=== PATIENT | male | born 1985 | race Caucasian/White ===

== ENCOUNTER 2019-09-28 13:04 | Emergency (ER) | payer MEDICAID, OTHER ==
[~2019-09-28] VITALS: Ht 188 cm; Wt 91.0 kg
[2019-09-28 13:06] VITALS: BP 146/91
[2019-09-28] MEDS ORDERED: SULF1TAB49 PO (13:46)
[2019-09-28] MEDS ORDERED: ibuprofen tablet 400 MG TABLET PO STA (13:59)
[2019-09-28] MEDS ORDERED: ibuprofen 200mg tablet PO STA (14:00)
== END 2019-09-28 14:08 | disposition home or self-care (01) ==
LOC: ER 13:04
DX: L02.511 Cutaneous abscess of right hand (principal)
CPT/HCPCS: 26010; 99283

== ENCOUNTER 2021-11-01 10:55 | Inpatient (IN) | payer MEDICAID, OTHER ==
[~2021-11-01] VITALS: Ht 188 cm; Wt 100.0 kg
[2021-11-01 11:29] LABS: BASOPHILS # (AUTO) 0.1 X10'3 (0-0.2); BASOPHILS % (AUTO) 0.8 % (0-1); EOSINOPHILS # (AUTO) 0.4 X10'3 (0-0.9); EOSINOPHILS % (AUTO) 4.2 % (0-6); HEMATOCRIT 40.1 % (42.0-52.0); HEMOGLOBIN 13.6 g/dl (14.0-17.9); LYMPHOCYTES # (AUTO) 2.1 X10'3 (1.1-4.8); LYMPHOCYTES % (AUTO) 21.1 % (21-51); MEAN CORPUSCULAR HEMOGLOBIN 30.8 PG (27.0-31.0); MEAN CORPUSCULAR VOLUME 90.7 FL (78-98); MEAN PLATELET VOLUME 8.5 FL (7.4-10.4); MONOCYTES # (AUTO) 0.7 X10'3 (0-0.9); MONOCYTES % (AUTO) 6.8 % (2-12); NEUTROPHILS # (AUTO) 6.8 X10'3 (1.8-7.7); NEUTROPHILS % (AUTO) 67.1 % (42-75); PLATELET COUNT 285 X10'3 (140-440); RED BLOOD COUNT 4.42 X10'6 (4.70-6.10); RED CELL DISTRIBUTION WIDTH 13.2 % (11.5-14.5); WHITE BLOOD COUNT 10.1 X10'3 (4.5-11.0)
[2021-11-01 11:45] LABS: ALANINE AMINOTRANSFERASE 36 U/L (12-78); ALBUMIN 4.2 G/DL (3.4-5.0); ALBUMIN/GLOBULIN RATIO 1.2 (1.1-1.5); ALKALINE PHOSPHATASE 51 IU/L (46-116); ANION GAP 10 (8-16); ASPARTATE AMINO TRANSFERASE 23 U/L (10-37); BILIRUBIN,TOTAL 0.3 MG/DL (0.1-1.0); BLOOD UREA NITROGEN 14 MG/DL (7-18); CALCIUM 8.4 MG/DL (8.5-10.1); CHLORIDE 104 MMOL/L (99-107); GLUCOSE 109 MG/DL (70-104); POTASSIUM 3.8 MMOL/L (3.5-5.1); SODIUM 137 MMOL/L (135-145); TOTAL CARBON DIOXIDE 23.1 MMOL/L (24-32); TOTAL PROTEIN 7.8 G/DL (6.4-8.2); eGFR 84 ML/MIN
[2021-11-01 12:05] LABS: D-DIMER < 0.19 MG/L FEU (0-0.50)
[2021-11-01] MEDS ORDERED: ALBU0.63 NEB (13:36)
[2021-11-01] MEDS ORDERED: ALBU8.5H17 INH (13:52)
[2021-11-01 14:11] LABS: URINE AMPHETAMINE SCREEN NEGATIVE (Neg); URINE BARBITUATE SCREEN NEGATIVE (Neg); URINE BENZODIAZEPINES SCREEN NEGATIVE (Neg); URINE CANNABINOID SCREEN POSITIVE (Neg); URINE COCAINE SCREEN NEGATIVE (Neg); URINE METHADONE SCREEN NEGATIVE (Neg); URINE OPIATE SCREEN NEGATIVE (Neg); URINE PHENCYCLIDINE SCREEN NEGATIVE (Neg)
[2021-11-01] MEDS ORDERED: acetaminophen 650mg rectal suppository RC PRN (15:30)
[2021-11-01] MEDS ORDERED: magnesium 2GM in 50ml NS 50 ML IV PRN (15:30)
[2021-11-01] MEDS ORDERED: potassium Cl 20 mEq SR tablet PO PRN ×2 (15:30)
[2021-11-01] MEDS ORDERED: potassium CL 10mEq/100ml bag 100 ML IV PRN (15:30)
[2021-11-01] MEDS ORDERED: diphenhydrAMINE 25mg capsule PO PRN (15:30)
[2021-11-01] MEDS ORDERED: magnesium Cl slow-release 64mg tablet PO PRN (15:30)
[2021-11-01] MEDS ORDERED: mag hydrox/Alum hydrox/simeth 30ml oral suspension PO PRN (15:30)
[2021-11-01] MEDS ORDERED: magnesium 4gm in 100ml NS 100 ML IV PRN (15:30)
[2021-11-01] MEDS ORDERED: bisacodyl 10mg suppository rectal RC PRN (15:30)
[2021-11-01] MEDS ORDERED: ondansetron/PF 4mg/2ml inj IV PRN (15:30)
[2021-11-01] MEDS ORDERED: acetaminophen 325mg tablet PO PRN ×2 (15:30)
[2021-11-01] MEDS ORDERED: PERFLUTREN PROTEIN-A MICROSPHR (Optison) 0.22 MG/ML 3ML VIAL IV PRN (15:30)
[2021-11-01] MEDS ORDERED: magnesium hydroxide 30ml (MOM) UD suspension PO PRN (15:30)
[2021-11-01] MEDS: normal saline 1000ml 1,000 ML IV SCH (16:03)
[2021-11-01] MEDS ORDERED: albuterol 2.5 MG/3 ML nebule NEB PRN (16:05)
--- NOTE | 2021-11-01 16:22 | NUR ---
Assisted with bubble study.
[2021-11-01 17:32] LABS: HEMOGLOBIN A1C 5.5 % (4.5-6.2)
[2021-11-01 17:45] VITALS: BP 122/72
--- NOTE | 2021-11-01 18:00 | NUR ---
Orientee documentation: I have reviewed and agree with all interventions, assessments performed and documented by Malou RN.
--- NOTE | 2021-11-01 18:00 | NUR ---
Problems reprioritized. Patient report given, questions answered & plan of care reviewed with Will JACKSON.
--- NOTE | 2021-11-01 19:01 | NUR ---
Patient in room PCU 3015. I have received report from Jasmina JACKSON and had the opportunity to ask questions and assume patient care.
[2021-11-01 20:00] VITALS: BP 138/81
[2021-11-01] MEDS: docusate sod 100mg capsule PO SCH (20:00)
[2021-11-01] MEDS: K and/or MAG REPLACEMENT MC SCH (20:00)
[2021-11-01 20:03] VITALS: BP 142/79
[2021-11-01 20:08] VITALS: BP 134/85
[2021-11-01] MEDS: heparin, porcine 5000 units/ml vial SQ SCH (20:24)
[2021-11-01 22:00] VITALS: BP 134/72
[2021-11-01 22:24] LABS: CLARITY,URINE CLEAR (Clear); COLOR,URINE YELLOW (Yellow); GLUCOSE, URINE NEGATIVE (Neg); KETONES,URINE TRACE mg/dl (Neg); LEUKOCYTE ESTERASE ,URINE NEGATIVE (Neg); NITRITES, URINE NEGATIVE (Neg); OCCULT BLOOD,URINE NEGATIVE (Neg); PROTEIN,URINE NEGATIVE (Neg); UROBILINOGEN,URINE 0.2 E.U/dL (0.2-1.0)
[2021-11-01 22:38] LABS: UA COLLECTION TYPE NON-SPECIFIED
[2021-11-02] VITALS (8 sets, daily range): BP systolic 113–141; BP diastolic 57–101
[2021-11-02] MEDS: normal saline 1000ml 1,000 ML IV SCH (02:33)
[2021-11-02 07:14] LABS: BASOPHILS % (AUTO) 0.7 % (0-1); EOSINOPHILS # (AUTO) 0.3 X10'3 (0-0.9); EOSINOPHILS % (AUTO) 4.6 % (0-6); HEMATOCRIT 37.7 % (42.0-52.0); HEMOGLOBIN 12.9 g/dl (14.0-17.9); LYMPHOCYTES # (AUTO) 1.1 X10'3 (1.1-4.8); LYMPHOCYTES % (AUTO) 17.4 % (21-51); MEAN CORPUSCULAR HEMOGLOBIN 30.8 PG (27.0-31.0); MEAN CORPUSCULAR HGB CONC 34.2 g/dL (33.0-36.5); MEAN PLATELET VOLUME 8.8 FL (7.4-10.4); MONOCYTES # (AUTO) 0.5 X10'3 (0-0.9); MONOCYTES % (AUTO) 7.4 % (2-12); NEUTROPHILS # (AUTO) 4.6 X10'3 (1.8-7.7); NEUTROPHILS % (AUTO) 69.9 % (42-75); PLATELET COUNT 212 X10'3 (140-440); RED BLOOD COUNT 4.19 X10'6 (4.70-6.10); RED CELL DISTRIBUTION WIDTH 13.1 % (11.5-14.5); WHITE BLOOD COUNT 6.6 X10'3 (4.5-11.0)
[2021-11-02 07:29] LABS: ALANINE AMINOTRANSFERASE 30 U/L (12-78); ALBUMIN 3.2 G/DL (3.4-5.0); ALKALINE PHOSPHATASE 42 IU/L (46-116); ANION GAP 8 (8-16); ASPARTATE AMINO TRANSFERASE 14 U/L (10-37); BILIRUBIN,TOTAL 0.4 MG/DL (0.1-1.0); BLOOD UREA NITROGEN 13 MG/DL (7-18); CHLORIDE 108 MMOL/L (99-107); CHOL/HDL RATIO 3.7 (0.00-4.99); CHOLESTEROL 154 MG/DL (0-200); CREATININE 0.81 MG/DL (0.60-1.10); GLUCOSE 90 MG/DL (70-104); HDL CHOLESTEROL 42 MG/DL (35-60); LDL CHOLESTEROL 90 MG/DL (50-100); MAGNESIUM 1.8 MG/DL (1.5-2.4); PHOSPHORUS 2.3 MG/DL (2.3-4.5); SODIUM 140 MMOL/L (135-145); TOTAL CARBON DIOXIDE 23.8 MMOL/L (24-32); TOTAL PROTEIN 6.5 G/DL (6.4-8.2); TRIGLYCERIDES 116 MG/DL (20-135); eGFR > 90 ML/MIN
[2021-11-02] MEDS: pantoprazole 40mg Tablet.DR PO SCH ×2 (07:30→09:35)
[2021-11-02] MEDS: docusate sod 100mg capsule PO SCH ×2 (08:00→19:34)
[2021-11-02] MEDS: K and/or MAG REPLACEMENT MC SCH ×2 (08:00→20:00)
[2021-11-02] MEDS: heparin, porcine 5000 units/ml vial SQ SCH ×2 (09:35→19:35)
[2021-11-02] MEDS ORDERED: pneumococcal 23-VAL P-sac vacc 25 mcg/0.5ml vial IMVAC ONE (10:00)
[2021-11-03 02:00] VITALS: BP 129/74
[2021-11-03 07:03] LABS: BASOPHILS # (AUTO) 0.1 X10'3 (0-0.2); BASOPHILS % (AUTO) 0.7 % (0-1); EOSINOPHILS # (AUTO) 0.3 X10'3 (0-0.9); HEMATOCRIT 39.7 % (42.0-52.0); HEMOGLOBIN 13.8 g/dl (14.0-17.9); LYMPHOCYTES # (AUTO) 1.1 X10'3 (1.1-4.8); LYMPHOCYTES % (AUTO) 14.4 % (21-51); MEAN CORPUSCULAR HEMOGLOBIN 31.2 PG (27.0-31.0); MEAN CORPUSCULAR HGB CONC 34.9 g/dL (33.0-36.5); MEAN CORPUSCULAR VOLUME 89.5 FL (78-98); MEAN PLATELET VOLUME 8.6 FL (7.4-10.4); MONOCYTES # (AUTO) 0.5 X10'3 (0-0.9); MONOCYTES % (AUTO) 6.9 % (2-12); NEUTROPHILS # (AUTO) 5.6 X10'3 (1.8-7.7); PLATELET COUNT 231 X10'3 (140-440); RED BLOOD COUNT 4.43 X10'6 (4.70-6.10); RED CELL DISTRIBUTION WIDTH 12.9 % (11.5-14.5); WHITE BLOOD COUNT 7.6 X10'3 (4.5-11.0)
[2021-11-03 07:09] LABS: OCCULT BLOOD STOOL NEGATIVE (Neg)
[2021-11-03 07:18] LABS: ALANINE AMINOTRANSFERASE 26 U/L (12-78); ALBUMIN 3.6 G/DL (3.4-5.0); ALKALINE PHOSPHATASE 47 IU/L (46-116); ANION GAP 9 (8-16); ASPARTATE AMINO TRANSFERASE 13 U/L (10-37); BILIRUBIN,TOTAL 0.4 MG/DL (0.1-1.0); BLOOD UREA NITROGEN 13 MG/DL (7-18); BUN/CREATININE RATIO 15.7 (5.4-32.0); CALCIUM 8.4 MG/DL (8.5-10.1); CHLORIDE 106 MMOL/L (99-107); CREATININE 0.83 MG/DL (0.60-1.10); GLUCOSE 101 MG/DL (70-104); MAGNESIUM 2.1 MG/DL (1.5-2.4); PHOSPHORUS 2.5 MG/DL (2.3-4.5); SODIUM 139 MMOL/L (135-145); TOTAL CARBON DIOXIDE 24.5 MMOL/L (24-32); TOTAL PROTEIN 7.3 G/DL (6.4-8.2); eGFR > 90 ML/MIN
[2021-11-03] MEDS: pantoprazole 40mg Tablet.DR PO SCH (07:30)
[2021-11-03] MEDS: docusate sod 100mg capsule PO SCH (08:00)
[2021-11-03] MEDS: K and/or MAG REPLACEMENT MC SCH (08:00)
[2021-11-03] MEDS: heparin, porcine 5000 units/ml vial SQ SCH (08:46)
[2021-11-03 11:00] VITALS: BP 142/94
[2021-11-03] MEDS ORDERED: PANT40TA54 PO (11:50)
--- NOTE | 2021-11-03 11:55 | NUR ---
Pt. removed own IV, catheter tip was intact. Pulled off his tele box, had belongings in hand and left AMA without signing form. Upset about not being able to smoke cigarettes. Left the unit @ 1150.
== END 2021-11-03 11:58 | disposition left against medical advice (07) | DRG 204 ==
LOC: ER 10:55 → ED HOLD 15:29 → PCU 3S 17:41
PROVIDERS: ADMIT Family Medicine; ATTEND Family Medicine
PROC: 4A10X4Z Monitoring of Central Nervous Electrical Activity, External Approach (ICD-10-PCS; principal; 2021-11-02)
DX: I95.1 Orthostatic hypotension (principal); F12.90 Cannabis use, unspecified, uncomplicated; Z20.822 Contact with and (suspected) exposure to COVID-19; F17.210 Nicotine dependence, cigarettes, uncomplicated; I49.9 Cardiac arrhythmia, unspecified; R19.7 Diarrhea, unspecified; J45.909 Unspecified asthma, uncomplicated; Z53.29 Procedure and treatment not carried out because of patient's decision for other reasons
CPT/HCPCS: 36415; 70450; 71045; 80053; 80061; 80305; 81003; 82272; 83036; 83735; 83880; 84100; 84443; 84484; 85025; 85379; 87045; 87046; 87081; 87635; 89055; 93005; 93306; 95816; 99285; C9803; G0378; J1644; J7030

== ENCOUNTER 2024-01-12 09:51 | Inpatient (IN) | payer MEDICAID ==
[~2024-01-12] VITALS: Ht 188 cm; Wt 103.8 kg
[~2024-01-12 09:51] MED LIST: ALBU8.5H17 INH; PANT40TA54 PO
[2024-01-12 10:54] LABS: BASOPHILS % (AUTO) 0.1 % (0-1); EOSINOPHILS # (AUTO) 0.1 X10'3 (0-0.9); EOSINOPHILS % (AUTO) 0.3 % (0-6); HEMATOCRIT 40.3 % (42.0-52.0); HEMOGLOBIN 13.7 g/dl (14.0-17.9); LYMPHOCYTES # (AUTO) 1.5 X10'3 (1.1-4.8); LYMPHOCYTES % (AUTO) 7.5 % (21-51); MEAN CORPUSCULAR HEMOGLOBIN 30.4 PG (27.0-31.0); MEAN CORPUSCULAR HGB CONC 33.9 g/dL (33.0-36.5); MEAN CORPUSCULAR VOLUME 89.8 FL (78-98); MEAN PLATELET VOLUME 8.4 FL (7.4-10.4); MONOCYTES # (AUTO) 1.4 X10'3 (0-0.9); NEUTROPHILS # (AUTO) 16.7 X10'3 (1.8-7.7); NEUTROPHILS % (AUTO) 85.1 % (42-75); PLATELET COUNT 388 X10'3 (140-440); RED BLOOD COUNT 4.49 X10'6 (4.70-6.10); RED CELL DISTRIBUTION WIDTH 13.9 % (11.5-14.5); WHITE BLOOD COUNT 19.7 X10'3 (4.5-11.0)
[2024-01-12 11:06] LABS: ALANINE AMINOTRANSFERASE 22 U/L (12-78); ALBUMIN 3.4 G/DL (3.4-5.0); ALBUMIN/GLOBULIN RATIO 0.7 (1.1-1.5); ALKALINE PHOSPHATASE 50 IU/L (46-116); ANION GAP 8 (8-16); ASPARTATE AMINO TRANSFERASE 6 U/L (10-37); BILIRUBIN,TOTAL 0.6 MG/DL (0.1-1.0); BLOOD UREA NITROGEN 10 MG/DL (7-18); BUN/CREATININE RATIO 10.3 (10.0-20.0); CALCIUM 8.8 MG/DL (8.5-10.1); CHLORIDE 100 MMOL/L (99-107); CREATININE 0.97 MG/DL (0.60-1.10); GLUCOSE 118 MG/DL (70-104); LIPASE 23 U/L (16-77); SODIUM 136 MMOL/L (135-145); TOTAL CARBON DIOXIDE 27.6 MMOL/L (24-32); TOTAL PROTEIN 8.6 G/DL (6.4-8.2); eCRCL 119 ML/MIN; eGFR 86 ML/MIN
[2024-01-12] MEDS ORDERED: iohexol 300mg/ml 100ml inj. ONE ×2 (11:24→16:49)
[2024-01-12 12:43] LABS: BILIRUBIN,URINE NEGATIVE (Neg); CLARITY,URINE CLEAR (Clear); COLOR,URINE YELLOW (Yellow); GLUCOSE, URINE NEGATIVE (Neg); KETONES,URINE NEGATIVE (Neg); LEUKOCYTE ESTERASE ,URINE NEGATIVE (Neg); NITRITES, URINE NEGATIVE (Neg); OCCULT BLOOD,URINE TRACE-INTACT (Neg); PROTEIN,URINE TRACE mg/dl (Neg); UROBILINOGEN,URINE 0.2 E.U/dL (0.2-1.0)
[2024-01-12 12:45] LABS: UA COLLECTION TYPE CLN CATCH MIDSTREAM
[2024-01-12 12:55] LABS: HYALINE CASTS 0-3 /LPF (NEGATIVE); MUCUS STRANDS MANY /LPF (Neg)
[2024-01-12 12:56] LABS: BACTERIA,URINE FEW /HPF (Neg); SQUAMOUS EPITHELIAL CELL,UR FEW /LPF (FEW); WBC,URINE 0-4 /HPF (0-4)
[2024-01-12] MEDS: vancomycin/NS 1 GM ADD-VANTAGE 250 ML X 1 DOSE IV ONE (13:35)
[2024-01-12] MEDS ORDERED: piperacillin/tazo 3.375gm/50ml 50 ML IV ONE (14:25)
[2024-01-12] MEDS ORDERED: potassium Cl 20 mEq SR tablet PO PRN ×2 (15:20)
[2024-01-12] MEDS ORDERED: magnesium 4gm in 100ml NS 100 ML IV PRN (15:20)
[2024-01-12] MEDS ORDERED: magnesium 2GM in 50ml NS 50 ML IV PRN (15:20)
[2024-01-12] MEDS ORDERED: morphine 2 MG/ML inj. syringe IV PRN ×2 (15:20)
[2024-01-12] MEDS ORDERED: mag hydrox/Alum hydrox/simeth 30ml oral suspension PO PRN (15:20)
[2024-01-12] MEDS ORDERED: ondansetron/PF 4mg/2ml inj IV PRN (15:20)
[2024-01-12] MEDS ORDERED: acetaminophen 325mg tablet PO PRN (15:20)
[2024-01-12] MEDS ORDERED: magnesium hydroxide 30ml (MOM) UD suspension PO PRN (15:20)
[2024-01-12] MEDS ORDERED: potassium Cl 40MEQ/1/2NS 520ml 520 ML IV PRN (15:20)
[2024-01-12] MEDS ORDERED: magnesium Cl slow-release 64mg tablet PO PRN (15:20)
[2024-01-12] MEDS ORDERED: HYDROcodone/acetaminophen 5mg/325mg tablet PO PRN (15:20)
[2024-01-12] MEDS: levoFLOXACIN-Levaquin 750MG/D5 150 ML IV SCH (16:31)
[2024-01-12] MEDS: levoFLOXACIN-Levaquin 750MG/D5 150 ML IV ONE (16:31)
[2024-01-12] MEDS: normal saline 1000ml 1,000 ML IV SCH (16:32)
[2024-01-12 17:32] VITALS: PULSE 91; RESP 16; O2SAT 95
[2024-01-12] MEDS: acetaminophen 325mg tablet PO PRN (18:00)
[2024-01-12 18:46] LABS: INR 1.1 INR; PROTHROMBIN TIME 11.5 SECONDS (9.0-12.0)
[2024-01-12 19:45] VITALS: BP 133/81; PULSE 86; RESP 17; TEMP 99.1; O2SAT 97
[2024-01-12 20:00] VITALS: RESP 17; O2SAT 97
[2024-01-12] MEDS: K and/or MAG REPLACEMENT MC SCH (20:00)
[2024-01-12 22:00] VITALS: BP 130/78; PULSE 82; RESP 18; TEMP 98.7; O2SAT 98
[2024-01-12] MEDS: docusate sod 100mg capsule PO SCH (22:02)
[2024-01-12] MEDS: enoxaparin 40mg/0.4ml syringe SQ SCH (22:04)
[2024-01-12] MEDS: vancomycin/NS 1 GM ADD-VANTAGE 250 ML IV SCH (22:44)
[2024-01-12] MEDS: HYDROcodone/acetaminophen 10/325mg tab PO PRN (22:44)
[2024-01-13] VITALS (10 sets, daily range): BP systolic 115–146; BP diastolic 69–92; PULSE 86–102; RESP 14–24; TEMP 96.9–99.1; O2SAT 89–97
[2024-01-13] MEDS: ipratropium/albuterol 3ml nebule NEB PRN (00:33)
[2024-01-13 06:55] LABS: BASOPHILS # (AUTO) 0.1 X10'3 (0-0.2); BASOPHILS % (AUTO) 0.6 % (0-1); EOSINOPHILS # (AUTO) 0.1 X10'3 (0-0.9); EOSINOPHILS % (AUTO) 0.4 % (0-6); HEMATOCRIT 37.2 % (42.0-52.0); HEMOGLOBIN 12.6 g/dl (14.0-17.9); LYMPHOCYTES # (AUTO) 0.9 X10'3 (1.1-4.8); LYMPHOCYTES % (AUTO) 5.2 % (21-51); MEAN CORPUSCULAR HGB CONC 33.8 g/dL (33.0-36.5); MEAN CORPUSCULAR VOLUME 88.8 FL (78-98); MEAN PLATELET VOLUME 8.3 FL (7.4-10.4); MONOCYTES # (AUTO) 1.2 X10'3 (0-0.9); MONOCYTES % (AUTO) 7.2 % (2-12); NEUTROPHILS # (AUTO) 14.5 X10'3 (1.8-7.7); NEUTROPHILS % (AUTO) 86.6 % (42-75); PLATELET COUNT 336 X10'3 (140-440); RED BLOOD COUNT 4.19 X10'6 (4.70-6.10); RED CELL DISTRIBUTION WIDTH 13.9 % (11.5-14.5); WHITE BLOOD COUNT 16.7 X10'3 (4.5-11.0)
[2024-01-13 07:02] LABS: APTT 28 SECONDS (22-32); INR 1.1 INR; PROTHROMBIN TIME 11.6 SECONDS (9.0-12.0)
[2024-01-13 07:16] LABS: ALANINE AMINOTRANSFERASE 20 U/L (12-78); ALBUMIN 2.8 G/DL (3.4-5.0); ALBUMIN/GLOBULIN RATIO 0.5 (1.1-1.5); ALKALINE PHOSPHATASE 44 IU/L (46-116); ANION GAP 10 (8-16); ASPARTATE AMINO TRANSFERASE 9 U/L (10-37); BILIRUBIN,TOTAL 0.5 MG/DL (0.1-1.0); BLOOD UREA NITROGEN 9 MG/DL (7-18); BUN/CREATININE RATIO 10.7 (10.0-20.0); CALCIUM 8.5 MG/DL (8.5-10.1); CHLORIDE 101 MMOL/L (99-107); CHOL/HDL RATIO 4.2 (0.00-4.99); CHOLESTEROL 154 MG/DL (0-200); CREATININE 0.84 MG/DL (0.60-1.10); GLUCOSE 103 MG/DL (70-104); HDL CHOLESTEROL 37 MG/DL (35-60); LDL CHOLESTEROL 95 MG/DL (50-100); MAGNESIUM 2.3 MG/DL (1.5-2.4); PHOSPHORUS 3.4 MG/DL (2.3-4.5); SODIUM 136 MMOL/L (135-145); TOTAL CARBON DIOXIDE 24.9 MMOL/L (24-32); TOTAL PROTEIN 7.9 G/DL (6.4-8.2); TRIGLYCERIDES 89 MG/DL (20-135); eCRCL 137 ML/MIN; eGFR > 90 ML/MIN
[2024-01-13 07:17] LABS: FREE T4 (FREE THYROXINE) 1.13 NG/DL (0.73-1.40); THYROID STIMULATING HORMONE 2.86 ulU/ml (0.34-4.50)
[2024-01-13 07:26] LABS: HIV ANTIBODY 1&2 RAPID NON-REACTIVE (Neg)
[2024-01-13 07:28] LABS: HEMOGLOBIN A1C 5.7 % (4.5-6.2)
[2024-01-13] MEDS: pantoprazole 40 MG vial IV SCH (07:47)
[2024-01-13] MEDS: VANCOMYCIN LEVEL IV ONE (12:44)
[2024-01-13 12:51] LABS: D-DIMER 0.87 MG/L FEU (0-0.50)
[2024-01-13] MEDS: clindamycin-Cleocin 900mg/D5W 50 ML IV SCH (16:03)
[2024-01-13] MEDS ORDERED: iohexol 350MG/ML 100ml bottle IV ONE (16:18)
[2024-01-14] VITALS (12 sets, daily range): BP systolic 106–133; BP diastolic 64–79; PULSE 87–102; RESP 16–18; TEMP 97.6–98.7; O2SAT 90–99
[2024-01-14 07:58] LABS: BASOPHILS # (AUTO) 0.1 X10'3 (0-0.2); BASOPHILS % (AUTO) 0.4 % (0-1); EOSINOPHILS # (AUTO) 0.2 X10'3 (0-0.9); EOSINOPHILS % (AUTO) 1.6 % (0-6); HEMATOCRIT 39.5 % (42.0-52.0); HEMOGLOBIN 13.2 g/dl (14.0-17.9); LYMPHOCYTES % (AUTO) 7.4 % (21-51); MEAN CORPUSCULAR HEMOGLOBIN 30.1 PG (27.0-31.0); MEAN CORPUSCULAR HGB CONC 33.4 g/dL (33.0-36.5); MEAN CORPUSCULAR VOLUME 89.9 FL (78-98); MEAN PLATELET VOLUME 8.4 FL (7.4-10.4); MONOCYTES % (AUTO) 7.1 % (2-12); NEUTROPHILS # (AUTO) 11.6 X10'3 (1.8-7.7); NEUTROPHILS % (AUTO) 83.5 % (42-75); PLATELET COUNT 377 X10'3 (140-440); RED CELL DISTRIBUTION WIDTH 13.7 % (11.5-14.5); WHITE BLOOD COUNT 13.9 X10'3 (4.5-11.0)
[2024-01-14 08:05] LABS: APTT 29 SECONDS (22-32); INR 1.1 INR; PROTHROMBIN TIME 11.6 SECONDS (9.0-12.0)
[2024-01-14 08:19] LABS: ALANINE AMINOTRANSFERASE 18 U/L (12-78); ALBUMIN 2.8 G/DL (3.4-5.0); ALBUMIN/GLOBULIN RATIO 0.5 (1.1-1.5); ALKALINE PHOSPHATASE 41 IU/L (46-116); ANION GAP 8 (8-16); ASPARTATE AMINO TRANSFERASE 11 U/L (10-37); BILIRUBIN,TOTAL 0.4 MG/DL (0.1-1.0); BLOOD UREA NITROGEN 9 MG/DL (7-18); BUN/CREATININE RATIO 11.1 (10.0-20.0); CALCIUM 8.6 MG/DL (8.5-10.1); CHLORIDE 102 MMOL/L (99-107); CREATININE 0.81 MG/DL (0.60-1.10); GLUCOSE 99 MG/DL (70-104); MAGNESIUM 2.1 MG/DL (1.5-2.4); PHOSPHORUS 3.9 MG/DL (2.3-4.5); POTASSIUM 4.1 MMOL/L (3.5-5.1); SODIUM 136 MMOL/L (135-145); eCRCL 142 ML/MIN; eGFR > 90 ML/MIN
[2024-01-14 17:14] LABS: IMMUNOGLOBULIN A, QN, SERUM 265 mg/dL (90-386); IMMUNOGLOBULIN G, QN, SERUM 1462 mg/dL (603-1613); IMMUNOGLOBULIN M, QN, SERUM 63 mg/dL (20-172)
[2024-01-15] VITALS (7 sets, daily range): BP systolic 117–125; BP diastolic 74; PULSE 94–110; RESP 15–18; TEMP 97.8–98.6; O2SAT 91–96
[2024-01-15 06:36] LABS: BASOPHILS % (AUTO) 0.2 % (0-1); EOSINOPHILS # (AUTO) 0.1 X10'3 (0-0.9); HEMATOCRIT 35.1 % (42.0-52.0); HEMOGLOBIN 11.7 g/dl (14.0-17.9); LYMPHOCYTES # (AUTO) 0.8 X10'3 (1.1-4.8); LYMPHOCYTES % (AUTO) 6.1 % (21-51); MEAN CORPUSCULAR HEMOGLOBIN 29.4 PG (27.0-31.0); MEAN CORPUSCULAR HGB CONC 33.2 g/dL (33.0-36.5); MEAN CORPUSCULAR VOLUME 88.4 FL (78-98); MONOCYTES # (AUTO) 0.9 X10'3 (0-0.9); MONOCYTES % (AUTO) 6.8 % (2-12); NEUTROPHILS # (AUTO) 11.7 X10'3 (1.8-7.7); NEUTROPHILS % (AUTO) 85.9 % (42-75); PLATELET COUNT 337 X10'3 (140-440); RED BLOOD COUNT 3.96 X10'6 (4.70-6.10); RED CELL DISTRIBUTION WIDTH 13.7 % (11.5-14.5); WHITE BLOOD COUNT 13.7 X10'3 (4.5-11.0)
[2024-01-15 06:41] LABS: APTT 26 SECONDS (22-32); INR 1.1 INR; PROTHROMBIN TIME 11.5 SECONDS (9.0-12.0)
[2024-01-15 06:45] LABS: ALANINE AMINOTRANSFERASE 27 U/L (12-78); ALBUMIN 2.4 G/DL (3.4-5.0); ALBUMIN/GLOBULIN RATIO 0.5 (1.1-1.5); ALKALINE PHOSPHATASE 39 IU/L (46-116); ANION GAP 6 (8-16); ASPARTATE AMINO TRANSFERASE 14 U/L (10-37); BILIRUBIN,TOTAL 0.2 MG/DL (0.1-1.0); BLOOD UREA NITROGEN 8 MG/DL (7-18); BUN/CREATININE RATIO 9.9 (10.0-20.0); CALCIUM 8.5 MG/DL (8.5-10.1); CHLORIDE 102 MMOL/L (99-107); CREATININE 0.81 MG/DL (0.60-1.10); GLUCOSE 105 MG/DL (70-104); MAGNESIUM 2.1 MG/DL (1.5-2.4); PHOSPHORUS 3.8 MG/DL (2.3-4.5); POTASSIUM 4.2 MMOL/L (3.5-5.1); SODIUM 134 MMOL/L (135-145); TOTAL CARBON DIOXIDE 25.6 MMOL/L (24-32); TOTAL PROTEIN 7.3 G/DL (6.4-8.2); eCRCL 142 ML/MIN; eGFR > 90 ML/MIN
[2024-01-15] MEDS: albuterol 2.5 MG/3 ML nebule NEB PRN (08:40)
[2024-01-15] MEDS: budesonide 0.5mg/2ml UD nebule IH SCH (08:40)
[2024-01-15] MEDS ORDERED: BUDE10.22 INH (12:43)
[2024-01-15] MEDS ORDERED: LACT1CAP26 PO (12:43)
[2024-01-15] MEDS ORDERED: CLIN-232 PO (12:43)
[2024-01-15] MEDS ORDERED: PANT-47 PO (12:43)
[2024-01-15] MEDS ORDERED: LEVO750T68 PO (12:43)
[2024-01-16 05:20] LABS: HEPATITIS C VIRUS ANTIBODY Non Reactive (Non Reactive)
[2024-01-20 07:36] LABS: COCCIDIOIDES CF ANTIBODY <1:2 (<1:2)
== END 2024-01-15 14:10 | disposition home or self-care (01) | DRG 137 ==
LOC: ER 09:51 → ED HOLD 15:24 → UNDOADMIN 15:24 → ED HOLD 16:56 → ORTHO 4S 19:45 → ED HOLD 19:45
PROVIDERS: ADMIT Family Medicine; ATTEND Family Medicine
PROC: BW211ZZ Computerized Tomography (CT Scan) of Abdomen and Pelvis using Low Osmolar Contrast (ICD-10-PCS; 2024-01-12)
PROC: B32T1ZZ Computerized Tomography (CT Scan) of Left Pulmonary Artery using Low Osmolar Contrast (ICD-10-PCS; principal; 2024-01-13)
PROC: B3201ZZ Computerized Tomography (CT Scan) of Thoracic Aorta using Low Osmolar Contrast (ICD-10-PCS; 2024-01-13)
PROC: B32S1ZZ Computerized Tomography (CT Scan) of Right Pulmonary Artery using Low Osmolar Contrast (ICD-10-PCS; 2024-01-13)
DX: J85.1 Abscess of lung with pneumonia (principal); K76.0 Fatty (change of) liver, not elsewhere classified; F12.90 Cannabis use, unspecified, uncomplicated; J45.909 Unspecified asthma, uncomplicated; F17.210 Nicotine dependence, cigarettes, uncomplicated; Z22.322 Carrier or suspected carrier of Methicillin resistant Staphylococcus aureus
CPT/HCPCS: 36415; 70450; 71045; 71260; 71275; 74177; 76700; 80053; 80061; 80202; 81001; 82784; 82785; 83036; 83605; 83690; 83735; 84100; 84145; 84439; 84443; 85025; 85379; 85610; 85730; 86703; 86709; 86803; 87040; 87070; 87081; 87502; 87503; 87522; 87811; 93005; 94640; 94760; 99285; A4615; C9113; G0378; J1650; J1956; J3370; J3490; J7030; Q9967

== ENCOUNTER 2024-02-02 08:58 | Outpatient (CLI) | payer MEDICAID ==
[~2024-02-02 08:58] MED LIST changes: +BUDE10.22 INH; +CLIN-232 PO; +LACT1CAP26 PO; +LEVO750T68 PO; +PANT-47 PO; -PANT40TA54 PO
[2024-02-02 09:25] LABS: BASOPHILS # (AUTO) 0.1 X10'3 (0-0.2); BASOPHILS % (AUTO) 0.5 % (0-1); EOSINOPHILS # (AUTO) 0.2 X10'3 (0-0.9); EOSINOPHILS % (AUTO) 1.2 % (0-6); HEMATOCRIT 34.2 % (42.0-52.0); HEMOGLOBIN 11.2 g/dl (14.0-17.9); LYMPHOCYTES # (AUTO) 1.3 X10'3 (1.1-4.8); LYMPHOCYTES % (AUTO) 7.9 % (21-51); MEAN CORPUSCULAR HEMOGLOBIN 28.5 PG (27.0-31.0); MEAN CORPUSCULAR HGB CONC 32.8 g/dL (33.0-36.5); MEAN PLATELET VOLUME 7.1 FL (7.4-10.4); MONOCYTES # (AUTO) 0.9 X10'3 (0-0.9); MONOCYTES % (AUTO) 5.1 % (2-12); NEUTROPHILS # (AUTO) 14.5 X10'3 (1.8-7.7); NEUTROPHILS % (AUTO) 85.3 % (42-75); PLATELET COUNT 480 X10'3 (140-440); RED BLOOD COUNT 3.93 X10'6 (4.70-6.10); RED CELL DISTRIBUTION WIDTH 14.4 % (11.5-14.5)
[2024-02-02 09:41] LABS: ALBUMIN 2.5 G/DL (3.4-5.0); ANION GAP 10 (8-16); BLOOD UREA NITROGEN 7 MG/DL (7-18); BUN/CREATININE RATIO 8.2 (10.0-20.0); CALCIUM 8.8 MG/DL (8.5-10.1); CHLORIDE 101 MMOL/L (99-107); CREATININE 0.85 MG/DL (0.60-1.10); GLUCOSE 102 MG/DL (70-104); POTASSIUM 4.1 MMOL/L (3.5-5.1); SODIUM 136 MMOL/L (135-145); TOTAL CARBON DIOXIDE 25.2 MMOL/L (24-32); eGFR > 90 ML/MIN
== END 2024-02-02 23:59 | disposition home or self-care (01) ==
LOC: RAD 08:58
PROVIDERS: ATTEND Internal Medicine Infectious Disease
DX: J90 Pleural effusion, not elsewhere classified (principal); J18.9 Pneumonia, unspecified organism
CPT/HCPCS: 36415; 71046; 80048; 85025

== ENCOUNTER → 2024-02-12 | Outpatient (CLI) | payer MEDICAID | END | disposition home or self-care (01) | LOC: RT 07:19 | PROVIDERS: ATTEND Nurse Practitioner | DX: J45.40 Moderate persistent asthma, uncomplicated (principal) | CPT/HCPCS: 94010 ==

== ENCOUNTER → 2024-02-18 | Outpatient (CLI) | payer MEDICAID ==
[~2024-02-18] MED LIST changes: -CLIN-232 PO; -LEVO750T68 PO
== END | disposition home or self-care (01) ==
LOC: RAD 12:40
PROVIDERS: ATTEND Nurse Practitioner
DX: J98.11 Atelectasis (principal); R91.1 Solitary pulmonary nodule; J90 Pleural effusion, not elsewhere classified
CPT/HCPCS: 71250